=== PATIENT | female | born 1970 ===

== ENCOUNTER 2017-01-13 08:42 | Emergency (ER) | payer OTHER ==
[2017-01-13 08:47] VITALS: BP 181/103; PULSE 75; TEMP 97; O2SAT 100; BMI 22.5
--- NOTE | 2017-01-13 09:14 | ED PDOC ---
HPI: Back Time Seen by Provider: 01/13/17 09:02 Chief Complaint (Provider): Left Hip and Left Sacral pain History Per: Patient History/Exam Limitations: no limitations Onset/Duration Of Symptoms: Days (x1) Current Symptoms Are (Timing): Still Present Additional Complaint(s): Sylwia Santos is a 46 year old female presenting to the ED for an evaluation of left hip and left sacral pain occurring since yesterday. She denies trauma, injury, radiation of pain, weakness, paresthesia, or urinary symptoms. PMD: TBD Past Medical History Reviewed: Historical Data, Nursing Documentation, Vital Signs Vital Signs: Last Vital Signs Temp 97 F L 01/13/17 08:46 Pulse 75 01/13/17 08:46 Resp BP 181/103 H 01/13/17 08:46 Pulse Ox 100 01/13/17 08:46 - Medical History PMH: No Chronic Diseases - Family History Family History: States: Unknown Family Hx - Home Medications Home Medications: Ambulatory Orders Medication Instructions Recorded Naproxen [Naprosyn] 500 mg PO Q12H #20 tab 01/13/17 - Allergies Allergies/Adverse Reactions: Allergies Allergy/AdvReac Type Severity Reaction Status Date / Time No Known Allergies Allergy Verified 01/13/17 09:08 Review of Systems ROS Statement: Except As Marked, All Systems Reviewed And Found Negative Genitourinary Female: Negative for: Dysuria, Frequency, Incontinence Musculoskeletal: Positive for: Other (left hip and left sacral pain ) Neurological: Negative for: Weakness (or paresthesia ) Physical Exam - Reviewed Nursing Documentation Reviewed: Yes Vital Signs Reviewed: Yes - Physical Exam Appears: Positive for: Non-toxic, No Acute Distress Head Exam: Positive for: ATRAUMATIC, NORMOCEPHALIC Cardiovascular/Chest: Positive for: Regular Rate, Rhythm. Negative for: Murmur Respiratory: Positive for: Normal Breath Sounds. Negative for: Respiratory Distress Gastrointestinal/Abdominal: Positive for: Normal Exam (no abdominal pain ), Soft. Negative for: Tenderness Back: Positive for: Normal Inspection, Other (tenderness to left sacroiliac area ). Negative for: L CVA Tenderness, R CVA Tenderness Neurologic/Psych: Positive for: Alert, Oriented (x3). Negative for: Motor/ Sensory Deficits, Other (no weakness; no paresthesia to lower extremities ) - ECG O2 Sat by Pulse Oximetry: 100 (RA) Pulse Ox Interpretation: Normal Medical Decision Making Medical Decision Making: Time: 09:02 Impression: Left Hip and Left sacral pain Plan: * [RAD] Sacroiliac Joints * Reevaluation Scribe Attestation: Documented by Alicia Mott, acting as a scribe for Alex Brand MD. Provider Scribe Attestation: All medical record entries made by the Scribe were at my direction and personally dictated by me. I have reviewed the chart and agree that the record accurately reflects my personal performance of the history, physical exam, medical decision making, and the department course for this patient. I have also personally directed, reviewed, and agree with the discharge instructions and disposition. Disposition - Clinical Impression Clinical Impression: Sacro-iliac pain - Patient ED Disposition Is Patient to be Admitted: No Counseled Patient/Family Regarding: Studies Performed, Diagnosis, Need For Followup, Rx Given - Disposition Referrals: [facility] [Outside] Disposition: Routine/Home Disposition Time: 10:23 Condition: FAIR Prescriptions: Naproxen [Naprosyn] 500 mg PO Q12H #20 tab Instructions: Sacroiliitis (ED) Print Language: BELARUSIAN
--- NOTE | 2017-01-13 11:11 | RAD ---
PROCEDURE: Radiographs of the sacroiliac joints HISTORY: pain COMPARISON: None available. TECHNIQUE: Two views of the sacroiliac joints FINDINGS: BONES: Limited cortical sclerosis appreciate the inferior bilateral sacroiliac joints indicative of minimal degenerative joint disease. No erosive arthropathy pattern is appreciated. There is no fracture or suspicious lytic or blastic change. SACROILIAC JOINTS: Limited bilateral inferior degenerative joint disease with remainder unremarkable. OTHER FINDINGS: None. IMPRESSION: Limited degenerative joint disease appreciated inferiorly at the bilateral sacroiliac joints with remainder unremarkable. No suspicious lytic or blastic change. No fracture identified bilaterally.
== END 2017-01-13 10:49 | disposition home or self-care (01) ==
LOC: H.ER 08:42
DX: M46.1 Sacroiliitis, not elsewhere classified (principal)

== ENCOUNTER 2017-10-02 11:02 | Emergency (ER) | payer OTHER ==
[2017-10-02 11:07] VITALS: TEMP 97.1; BMI 22.7
--- NOTE | 2017-10-02 11:41 | ED PDOC ---
Lower Extremity Pain/Injury Time Seen by Provider: 10/02/17 11:21 Chief Complaint (Nursing): Lower Extremity Problem/Injury Chief Complaint (Provider): leg injury History Per: Patient History/Exam Limitations: no limitations Onset/Duration Of Symptoms: Days (today) Current Symptoms Are (Timing): Still Present Additional Complaint(s): Pt. fell accidentally in the bathroom while cleaning. Hit the right knight on the tub and got a cut. Did not hit anything else. No head injury, dizziness, weakness, numbness, tingles. Ambulated after. Currently no pain to the laceration. Past Medical History Reviewed: Nursing Documentation, Vital Signs Vital Signs: Last Vital Signs Temp 97.1 F L 10/02/17 11:05 Pulse 73 10/02/17 11:05 Resp BP 167/87 H 10/02/17 11:05 Pulse Ox 98 10/02/17 11:05 - Medical History PMH: HTN - Family History Family History: States: Unknown Family Hx - Home Medications Home Medications: Ambulatory Orders Medication Instructions Recorded Amoxicillin/Clavulanate [Augmentin 1 tab PO BID 7 Days tab 10/02/17 875 MG-125 MG] - Allergies Allergies/Adverse Reactions: Allergies Allergy/AdvReac Type Severity Reaction Status Date / Time No Known Allergies Allergy Verified 10/02/17 11:19 Review of Systems Constitutional: Negative for: Weakness Genitourinary Female: Negative for: Pelvic Pain Musculoskeletal: Negative for: Neck Pain, Shoulder Pain, Arm Pain, Back Pain, Hand Pain, Other Skin: Negative for: Rash Neurological: Negative for: Weakness, Numbness, Dizziness Physical Exam - Reviewed Nursing Documentation Reviewed: Yes Vital Signs Reviewed: Yes - Physical Exam Appears: Positive for: Well, Non-toxic, No Acute Distress Head Exam: Positive for: ATRAUMATIC, NORMAL INSPECTION, NORMOCEPHALIC Neck: Positive for: Normal, Painless ROM Cardiovascular/Chest: Positive for: Regular Rate, Rhythm Respiratory: Positive for: CNT, Normal Breath Sounds Pulses-Dorsalis Pedis (R): 2+ Back: Positive for: Normal Inspection. Negative for: L CVA Tenderness, R CVA Tenderness Extremity: Positive for: Normal ROM, Other (right laceration avulsion anterior tibia (mid leg) nontender). Negative for: Tenderness, Pedal Edema Neurologic/Psych: Positive for: Alert, Oriented - ECG O2 Sat by Pulse Oximetry: 98 Pulse Ox Interpretation: Normal - Progress ED Course And Treament: 1237: Podiatry saw pt. and sutured laceration. Will dc with augmentin 875mg bid for [address] Victor. Pt. aaox3. Pain free. Suture removal in 10 days. Pt. aware of bp being high in ER. Will fu with pcp. Disposition - Clinical Impression Clinical Impression: Laceration, HTN (hypertension) - Patient ED Disposition Is Patient to be Admitted: No Counseled Patient/Family Regarding: Diagnosis, Need For Followup, Rx Given - Disposition Referrals: Clem Victor DPM [Medical Doctor] - 10/03/17 Disposition: Routine/Home Disposition Time: 12:38 Condition: STABLE Additional Instructions: Come back or see the healthcare economics manager for suture removal in 10 days. Return if not better in 3 days. See your primary care doctor for follow up of your high blood pressure in 3 days. Prescriptions: Amoxicillin/Clavulanate [Augmentin 875 MG-125 MG] 1 tab PO BID 7 Days tab Instructions: Laceration Repair With Stitches (DC), High Blood Pressure in Adults Forms: [facility] (Kazakh)
[2017-10-02] MEDS ORDERED: Tdap Vaccine 0.5 ml Vial (10-64 yrs) IM ONE (12:00)
[2017-10-02] MEDS ORDERED: Lidocaine 1% Inj (20ml) SC ONE (12:10)
[2017-10-02] MEDS ORDERED: Lidocaine 1% MPF (30 ml) Inj ONE (12:14)
[2017-10-02 13:10] VITALS: BP 149/82; PULSE 68; RESP 18; O2SAT 99
--- NOTE | 2017-10-02 16:23 | CP.PCM.CON ---
History of Present Illness - History of Present Illness History of Present Illness: ED Consult Note for Dr. Victor 47yo female with PMHx of HTN, presents today after accidentally falling in her bathroom around 10am. She fell and hit her right knight on the bathtub. Patient does not recall when her last tetanus injection was administered. She also tried to stop the bleeding on her own and took Alleve to help with the pain. She then ambulated into the ED as soon as she could. Patient denies any head injury, dizziness, or weakness. AAO x3 and NAD. She denies any numbness or tingling to her right lower extremty and denies any other pedal complaints at this time. Patient denies N/V/F/SOB/CP/C. PMHx: HTN Family Hx: HTN All: NKDA Meds: None Review of Systems - Review of Systems All systems: reviewed and no additional remarkable complaints except Review of Systems: As Per HPI Past Patient History - Past Social History Smoking Status: Never Smoked - CARDIAC Hx Hypertension: Yes - PSYCHIATRIC Hx Substance Use: No - SURGICAL HISTORY Hx Surgeries: Yes Hx Section: Yes - ANESTHESIA Hx Anesthesia: Yes Hx Anesthesia Reactions: No Meds Home Medications: Home Medication List Medication Instructions Recorded Confirmed Type Amoxicillin/Clavulanate [Augmentin 1 tab PO BID 7 Days tab 10/02/17 Rx 875 MG-125 MG] Allergies/Adverse Reactions: Allergies Allergy/AdvReac Type Severity Reaction Status Date / Time No Known Allergies Allergy Verified 10/02/17 11:19 Physical Exam - Constitutional Appears: Well, Non-toxic, No Acute Distress - Head Exam Head Exam: ATRAUMATIC, NORMOCEPHALIC - Extremities Exam Additional comments: Vascular: DP/PT 2/4 bilaterally. CFT <3 seconds to all ten digits. Temperature gradient WNL. Pedal hair present. No edema noted to area surrounding laceration. Ortho: MMT 5/5. All active and passive ROM to leg and foot WNL. Neuro: Gross and protective sensation intact bilaterally. Derm: Curvi-linear laceration noted to right anterior proximal tibia measuring approximately 3cm x1cm x .2cm. No signs of infection. No purulence. Minimal active sanguinous drainage noted. No probe to bone. No tunneling. No tracking. Minimal pain to palpation to area surrounding laceration. Minimal erythema around laceration site. - Neurological Exam Neurological exam: Alert, Normal Gait, Oriented x3 - Psychiatric Exam Psychiatric exam: Normal Affect, Normal Mood Results - Vital Signs Recent Vital Signs: Last Vital Signs Temp 97.1 F L 10/02/17 13:06 Pulse 68 10/02/17 13:06 Resp 18 10/02/17 13:06 BP 149/82 10/02/17 13:06 Pulse Ox 99 10/02/17 13:06 Assessment & Plan - Assessment and Plan (Free Text) Assessment: 47yo female with PMHx of HTN, presents today after accidentally falling in her bathroom. Plan: Patient was examined, evaluated, and discussed with Dr. Victor Laceration was flushed with 1:1 mixture of betadine and saline solution 8 cc of 1% lidocaine plain was injected and her laceration was sutured with 4-0 Prolene Explained to patient that the skin being sutured together is damaged from the laceration and as a result, dehiscence may occur if the skin turns out to be no longer viable. Patient demonstrated good understanding Wound was dressed with adaptic and DSD. Tetanus .5ml IM was administered to patient. Prescribed Augmentin 875 mg BID for one week Patient was advised to return to ED if she began to show any local or systemic signs of infection Patient to f/u with Dr. Victor in office for suture removal in 7-10 days - Date & Time Date: 10/02/17 Time: 18:32
== END 2017-10-02 13:15 | disposition home or self-care (01) ==
LOC: H.ER 11:02
DX: S81.812A Laceration without foreign body, left lower leg, initial encounter (principal); W22.8XXA Striking against or struck by other objects, initial encounter; Y92.002 Bathroom of unspecified non-institutional (private) residence as the place of occurrence of the external cause; I10 Essential (primary) hypertension

== ENCOUNTER 2017-10-11 11:37 | Emergency (ER) | payer OTHER ==
[2017-10-11 11:38] VITALS: BMI 22.7
[2017-10-11 11:58] VITALS: PULSE 79; RESP 20; TEMP 98.3; O2SAT 99
[2017-10-11] MEDS ORDERED: Bacitracin OINT 15GM TOP STA (12:31)
--- NOTE | 2017-10-11 12:34 | ED PDOC ---
HPI: Wound Care - HPI Time Seen by Provider: 10/11/17 12:11 Chief Complaint (Nursing): Suture/Staple Removal Chief Complaint (Provider): Suture Removal History Per: Patient Exam Limitations: no limitations Onset/Duration Of Symptoms: Days (x10) Current Symptoms Are (Timing): Better Additional Complaint(s): 47 year old female presents to the ED for suture removal. Patient states that ten days ago she slipped in her bathtub and sustained a laceration to her right knight that required four sutures to be placed. She denies any complications with the wound, drainage, swelling, and fever. Tetanus is up to date. LNMP: 09/08/2017 PMD: none provided Past Medical History Reviewed: Historical Data, Nursing Documentation, Vital Signs Vital Signs: Last Vital Signs Temp 98.3 F 10/11/17 11:54 Pulse 79 10/11/17 11:54 Resp 20 10/11/17 11:54 BP 167/97 H 10/11/17 11:54 Pulse Ox 99 10/11/17 11:54 - Medical History PMH: HTN - Surgical History Surgical History: (x1) - Family History Family History: States: Hypertension - Social History Current smoker - smoking cessation education provided: No Alcohol: None Drugs: Denies - Immunization History Hx Tetanus Toxoid Vaccination: Yes - Home Medications Home Medications: Ambulatory Orders Medication Instructions Recorded Amoxicillin/Clavulanate [Augmentin 1 tab PO BID 7 Days tab 10/02/17 875 MG-125 MG] Bacitracin OINT 1 applic TOP BID #1 tube 10/11/17 - Allergies Allergies/Adverse Reactions: Allergies Allergy/AdvReac Type Severity Reaction Status Date / Time No Known Allergies Allergy Verified 10/02/17 11:19 Review of Systems ROS Statement: Except As Marked, All Systems Reviewed And Found Negative Constitutional: Negative for: Fever Skin: Positive for: Other (4 sutures to right knight, without swelling or drainage ) Physical Exam - Reviewed Nursing Documentation Reviewed: Yes Vital Signs Reviewed: Yes - Physical Exam Comments: GENERAL APPEARANCE: Patient is awake, alert, oriented x 3, in no distress. Resting comfortably. Neck: Supple, FROM ENT: Mucus membranes moist. Airway patent, (-) stridor. Skin: Warm and dry. Healing 1.5cm laceration to the ventral mid right lower leg with [address] and with no surrounding cellulitis. (-) tenderness, (-) erythema, (-) swelling, (-) drainage (-) warmth. Pulmonary: Lungs clear to auscultation bilaterally; no rhonchi, no wheezing. Cardiac: regular rate and rhythm Extremities: FROM, no tenderness Scribe Attestation: Documented by Cynthia Live, acting as a scribe for Feli Fitzpatrick PA-C. Provider Scribe Attestation: All medical record entries made by the Scribe were at my direction and personally dictated by me. I have reviewed the chart and agree that the record accurately reflects my personal performance of the history, physical exam, medical decision making, and the department course for this patient. I have also personally directed, reviewed, and agree with the discharge instructions and disposition. - ECG O2 Sat by Pulse Oximetry: 99 (RA) Pulse Ox Interpretation: Normal Medical Decision Making Medical Decision Making: Time: 1220 Clinical Impression: Visit for wound check, Suture removal Plan: -Suture removal -Bacitracin dressing -Re-evaluation -Repeat BP 1230 4 Sutures to right lower extremity removed without difficulty by Amari KING. Patient tolerated procedure well. Bacitracin and dressing applied. NV intact after suture removal. Patient advised to continue wound care at home and apply antibiotic ointment as prescribed. On exam, patient remains AAOx3, in no acute distress. Neck is supple, lungs CTA , cardiac RRR, neuro exam shows no focal findings. Repeat BP: 138/78 VSS, stable for discharge. Diagnostic results d/w the patient in great detail. Dx of visit for wound care, suture removal d/w the patient. Based on history, exam and diagnostic results plan will be for discharge and outpatient follow up. Advised to follow up with primary care physician/clinic in 1-2 days without fail. Advised to use medication as prescribed. Return to the emergency room at any time for any new or worsening symptoms. Patient states she fully agrees with and understands discharge instructions. States that she agrees with the plan and disposition. Verbalized and repeated discharge instructions and plan. I have given the patient opportunity to ask any additional questions. Disposition - Clinical Impression Clinical Impression: Visit for wound care, Removal of suture - Patient ED Disposition Is Patient to be Admitted: No Counseled Patient/Family Regarding: Diagnosis, Need For Followup, Rx Given - Disposition Referrals: [facility] [Outside] Disposition: Routine/Home Disposition Time: 12:31 Condition: STABLE Additional Instructions: FOLLOW UP WITH CLINIC NEEDED. RETURN TO ED WITH ANY NEW OR WORSENING SYMPTOMS. KEEP WOUND CLEAN AND DRY. APPLY ANTIBIOTIC OINTMENT PRESCRIBED. Prescriptions: Bacitracin OINT 1 applic TOP BID #1 tube Instructions: Stitches Removal, Wound Care Forms: [facility] (Prydeinig) Print Language: LAO - POA Present On Arrival: Falls Or Trauma (10 DAYS AGO)
[2017-10-11 12:40] VITALS: BP 138/78
== END 2017-10-11 12:43 | disposition home or self-care (01) ==
LOC: H.ER 11:37
DX: Z48.02 Encounter for removal of sutures (principal)